=== PATIENT | female | born 1960 | race Caucasian/White ===

== ENCOUNTER 2022-04-25 16:23 | Outpatient (CLI) | payer OTHER, SELFPAY ==
[2022-04-25 12:24] LABS: Cholesterol* 231 mg/dL (90-199); Triglycerides* 65 mg/dL (40-149)
[2022-04-25 12:25] LABS: HDL Cholesterol* 94 mg/dL (>=50); LDL Cholesterol Calculated 124 mg/dL (<100)
== END 2022-04-25 16:24 | disposition home or self-care (01) ==
PROVIDERS: PCP Family Medicine; Visit Provider Family Medicine
DX: Z00.00 Encounter for general adult medical examination without abnormal findings (principal); Z13.6 Encounter for screening for cardiovascular disorders
CPT/HCPCS: 80061

== ENCOUNTER 2022-07-01 13:49 | Outpatient (CLI) | payer OTHER, SELFPAY ==
--- NOTE | 2022-07-01 14:00 | CRLHL7_ITS ---
For Patients: As a result of the Century Cures Act, medical imaging exams and procedure reports are released immediately into your electronic medical record. You may view this report before your referring provider. If you have questions, please contact your health care provider. BILATERAL SCREENING MAMMOGRAM WITH COMPUTER-AIDED DETECTION AND TOMOSYNTHESIS TECHNIQUE: CC and MLO views were obtained. These mammographic images have been obtained using full-field digital technique. These mammographic images were interpreted with the benefit of computer-aided detection. Breast Tomosynthesis was used in this interpretation. COMPARISON FILM: 06/22/20, 03/09/19, 01/06/18. FINDINGS: There are scattered areas of fibroglandular density IMPRESSION: There is no radiographic evidence for malignancy. ASSESSMENT: BI-RADS Category 1: Negative RECOMMENDATION: Routine screening mammogram in 1 year. A lay language report of this examination will be provided to the patient. Ash Saucedo M.D. Diagnostic Radiologist [email or web address] SHOSHANA/Dictated by: Ash Saucedo MD @ 07/02/2022 9:13:00 AM (Electronically Signed)
== END 2022-07-01 13:50 | disposition home or self-care (01) ==
PROVIDERS: PCP Family Medicine; Visit Provider Family Medicine
DX: Z12.31 Encounter for screening mammogram for malignant neoplasm of breast (principal)
CPT/HCPCS: 77063; 77067

== ENCOUNTER 2024-07-07 15:17 | Outpatient (CLI) | payer OTHER, SELFPAY ==
--- NOTE | 2024-07-07 15:00 | CRLHL7_ITS ---
For Patients: As a result of the Century Cures Act, medical imaging exams and procedure reports are released immediately into your electronic medical record. You may view this report before your referring provider. If you have questions, please contact your health care provider. BILATERAL SCREENING MAMMOGRAM WITH COMPUTER-AIDED DETECTION AND TOMOSYNTHESIS TECHNIQUE: CC and MLO views were obtained. These mammographic images have been obtained using full-field digital technique. These mammographic images were interpreted with the benefit of computer-aided detection. Breast Tomosynthesis was used in this interpretation. COMPARISON FILM: 07/01/22, 06/22/20, 03/09/19. FINDINGS: There are scattered areas of fibroglandular density IMPRESSION: There is no radiographic evidence for malignancy. ASSESSMENT: BI-RADS Category 1: Negative RECOMMENDATION: Routine screening mammogram in 1 year. A lay language report of this examination will be provided to the patient. Ash Saucedo M.D. Diagnostic Radiologist [email or web address] SHOSHANA/Dictated by: Ash Saucedo MD @ 07/09/2024 9:48:00 AM (Electronically Signed)
== END 2024-07-07 15:18 | disposition home or self-care (01) ==
LOC: MAMMO 15:18
PROVIDERS: PCP Family Medicine; Visit Provider Family Medicine
DX: Z12.31 Encounter for screening mammogram for malignant neoplasm of breast (principal)
CPT/HCPCS: 77063; 77067

== ENCOUNTER 2024-11-12 07:57 | Outpatient (CLI) | payer OTHER, SELFPAY | END 2024-11-12 07:58 | disposition home or self-care (01) | LOC: NFLDREF 11-15 01:34 | PROVIDERS: PCP Family Medicine; Referring Provider Family Medicine; Visit Provider Family Medicine | DX: E78.5 Hyperlipidemia, unspecified (principal) | CPT/HCPCS: 80053; 80061 ==

== ENCOUNTER 2024-12-14 07:53 | Outpatient (CLI) | payer OTHER, SELFPAY ==
[2024-12-17 08:29] LABS: HPV Source Cervix/vagina; HPV, High Risk by TMA Not Detected
== END 2024-12-14 07:54 | disposition home or self-care (01) ==
PROVIDERS: PCP Family Medicine; Visit Provider Family Medicine
DX: Z12.4 Encounter for screening for malignant neoplasm of cervix (principal); Z11.51 Encounter for screening for human papillomavirus (HPV)
CPT/HCPCS: 87624; 87625; 88141; 88142

== ENCOUNTER 2025-01-17 07:08 | Outpatient (CLI) | payer OTHER, SELFPAY ==
--- NOTE | 2025-01-17 08:49 | P.ANES_ITS ---
Anesthesia Charges Start Date/Time Anesthesia Start Date: 01/17/25 Anesthesia Start Time: 08:06 Stop Date/Time Anesthesia Stop Date: 01/17/25 Anesthesia Stop Time: 08:43 Coding CPT Codes CPT Codes: [place] LWR INTST NDCA NOS - [id number] ([id number]) P1 - NORMAL HEALTHY PATIENT, QK - SERVICE WORKER 2-4 CNCRNT ANES PROC, QX - CHANGE CONTROL SPECIALIST SVC W/ MED DIRECTION
--- NOTE | 2025-01-17 08:49 | W.ANESCHARGE ---
Anesthesia Charges Start Date/Time Anesthesia Start Date: 01/17/25 Anesthesia Start Time: 08:06 Stop Date/Time Anesthesia Stop Date: 01/17/25 Anesthesia Stop Time: 08:43 Coding CPT Codes CPT Codes: [place]A LWR INTST NDOR NOS - [id number] ([id number]) P1 - NORMAL HEALTHY PATIENT, QK - ANIMAL HUSBANDRY PROFESSOR 2-4 CNCRNT ANES PROC, QX - CAMPGROUND MANAGER SVC W/ MED DIRECTION
--- NOTE | 2025-01-17 09:43 | P.ANES_ITS ---
Anesthesia Charges Start Date/Time Anesthesia Start Date: 01/17/25 Anesthesia Start Time: 08:06 Stop Date/Time Anesthesia Stop Date: 01/17/25 Anesthesia Stop Time: 08:43 Coding CPT Codes CPT Codes: [place]A LWR INTST NDSC NOS - [id number] ([id number]) QK - CHAPLAIN RESIDENT 2-4 CNCRNT ANES PROC, QX - CEPHALOMETRIC ANALYST SVC W/ MED DIRECTION, P1 - NORMAL HEALTHY PATIENT
--- NOTE | 2025-01-17 09:43 | W.ANESCHARGE ---
Anesthesia Charges Start Date/Time Anesthesia Start Date: 01/17/25 Anesthesia Start Time: 08:06 Stop Date/Time Anesthesia Stop Date: 01/17/25 Anesthesia Stop Time: 08:43 Coding CPT Codes CPT Codes: [place] LWR INTST NDSC NOS - 29011 ([id number]) QK - WELLNESS DIRECTOR 2-4 CNCRNT ANES PROC, QX - EXECUTIVE ASSISTANT TO GENERAL COUNSEL SVC W/ MED DIRECTION, P1 - NORMAL HEALTHY PATIENT
== END 2025-01-17 07:09 | disposition home or self-care (01) ==
LOC: OP CLINIC 07:10
PROVIDERS: PCP Family Medicine; Visit Provider Surgery
DX: Z12.11 Encounter for screening for malignant neoplasm of colon (principal); D12.0 Benign neoplasm of cecum; D12.2 Benign neoplasm of ascending colon
CPT/HCPCS: 00811; 45385; 88305; J2704